=== PATIENT | female | born 1955 | race Caucasian/White ===

== ENCOUNTER 2021-06-20 07:46 | Outpatient (CLI) | payer OTHER, SELFPAY ==
--- NOTE | ~2021-06-20 | US_ITS ---
US arterial ankle brachial ind INDICATION: Peripheral vascular disease TECHNIQUE: Segmental pressures and plethysmographic and Doppler waveforms of the brachial and lower e xtremity arteries were obtained. COMPARISON: None. FINDINGS: Right and left brachial artery pressures of 154 mm Hg and 150 mm Hg, respectively, are concordant (no rmal difference <= 30 mmHg). The right ankle-brachial index (ESDRAS) is 0.97 (normal >= 0.9-1.0). The right great toe-brachial index (TBI) is 0.58 (normal >= 0.60). The left ESDRAS is 0.98. The left TBI is 0.55. IMPRESSION: 1. Normal ankle-brachial indices. Mildly decreased toe brachial indices consistent with mild peripher al arterial disease. Reviewed, dictated and finalized at location B. H DESIGNER IMPRESSION: 1. Normal ankle-brachial indices. Mildly decreased toe brachial indices consist ent with mild peripheral arterial disease.
== END 2021-06-20 07:47 | disposition home or self-care (01) ==
PROVIDERS: PCP Internal Medicine; Visit Provider Nurse Practitioner
DX: I73.9 Peripheral vascular disease, unspecified (principal)
CPT/HCPCS: 93922

== ENCOUNTER 2021-09-30 14:37 | Outpatient (CLI) | payer OTHER, SELFPAY ==
--- NOTE | ~2021-09-30 | CT_ITS ---
EXAMINATION: CT abdomen pelvis wo con DATE: 09/30/2021 14:55 INDICATION: Left lower quadrant pain TECHNIQUE: Computed tomography (CT) of the abdomen and pelvis was performed without intravenous contr ast. The dose-length product was 198.48 mGy-cm. Automated exposure control and iterative reconstructi on technique were employed. COMPARISON: CT dated 04/22/2008. FINDINGS: Lung bases are unremarkable. Heart size is normal. Small chronic pericardial effusion. No s ignificant pleural effusion. Status post cholecystectomy. The liver, spleen, adrenal glands are unrem arkable. There are pancreatic calcifications, consistent with chronic pancreatitis. The left kidney i s not identified, possibly surgically absent. There are anastomotic changes in the distal colon. Mild lumbar spondylosis. Dextroscoliosis. There is atherosclerosis of the aorta. No lymphadenopathy. No a cute osseous abnormality. IMPRESSION: 1. Small chronic pericardial effusion. 2: Chronic pancreatitis. 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 Reviewed, dictated and finalized at location B.
--- NOTE | ~2021-09-30 | US_ITS ---
EXAMINATION: US carotid duplex BI DATE: 09/30/2021 15:17 INDICATION: Peripheral vascular disease. TECHNIQUE: Grayscale, color Doppler, and pulsed Doppler images of the cervical carotid arteries were obtained. The degree of vessel stenosis is placed in one of the following categories: normal, <50%, 5 0-69%, >=70% but less than near-occlusion, near-occlusion, or total occlusion. Note that percent sten osis relative to normal distal artery lumen diameter is indirectly measured from velocity measurement s as described by Juliano, et al. Radiology 2003; 229:340-346. COMPARISON: None. FINDINGS: RIGHT: The right common carotid artery (CCA) peak systolic velocity (PSV) is 134 cm/s. The right internal ca rotid artery (ICA) PSV is 114 cm/s. The right ICA end-diastolic velocity (EDV) is 39 cm/s. The right ICA/CCA PSV ratio is 0.9. Grayscale and color Doppler images yield an estimate of <50% diameter reduc tion from plaque in the ICA. There is antegrade flow in the right vertebral artery. LEFT: The left CCA PSV is 114 cm/s. The left ICA PSV is 153 cm/s. The left ICA EDV is 32 cm/s. The left ICA /CCA PSV ratio is 1.4. Grayscale and color Doppler images yield an estimate of <50% diameter reductio n from plaque in the ICA. There is antegrade flow in the left vertebral artery. IMPRESSION: 1. <50% stenosis in the right internal carotid artery. 2. <50% stenosis in the left internal carotid artery. Reviewed, dictated and finalized at location A.
== END 2021-09-30 14:38 | disposition home or self-care (01) ==
PROVIDERS: Visit Provider Nurse Practitioner
DX: R10.32 Left lower quadrant pain (principal); I65.23 Occlusion and stenosis of bilateral carotid arteries; Z87.891 Personal history of nicotine dependence; K85.90 Acute pancreatitis without necrosis or infection, unspecified; I31.3 Pericardial effusion (noninflammatory); M41.9 Scoliosis, unspecified; M47.816 Spondylosis without myelopathy or radiculopathy, lumbar region; I70.0 Atherosclerosis of aorta
CPT/HCPCS: 74176; 93880

== ENCOUNTER 2022-09-29 10:15 | Outpatient (CLI) | payer OTHER, SELFPAY ==
--- NOTE | ~2022-09-29 | CT_ITS ---
EXAMINATION: CT lung screening DATE: 09/29/2022 10:51 INDICATION: screening TECHNIQUE: Computed tomography (CT) of the chest was performed without intravenous contrast. Addition al 3D reconstructions utilizing coronal maximum intensity projection (MIP) were performed. Automated exposure control and iterative reconstruction technique were employed. The dose-length product was 55 .45 mGy-cm. COMPARISON: CT abdomen and pelvis dated 09/30/2021 FINDINGS: Mild emphysema. Mild right apical pleural-parenchymal scarring. Calcified nodules in the right lower lobe along with calcified right hilar lymph nodes consistent with old granulomatous disease. A couple subpleural 2-3 mm noncalcified nodules in the posterior right and left lower lobes. No pneumonia, pu lmonary edema or pleural effusion. Heart size is normal. Atherosclerotic coronary artery calcificatio ns. Chronic small thoracic aorta is normal in caliber. No pathologically enlarged thoracic lymphadeno hai. Pericardial effusion. Cholecystectomy clips at the gallbladder fossa. Mild thoracic kyphosis with chronic. Minimal anterior wedging at T6-T8. Moderate thoracic spondylosis. Ossification bridging between the anterolateral right seventh and eighth ribs which could be developmental or sequela of o ld trauma. IMPRESSION: 1. Lung-RADS category 2: Benign appearance or behavior. Continue annual screening with noncontrast lo w-dose chest CT in 12 months. 2. Chronic small pericardial effusion. Reviewed, dictated and finalized at location B. IMPRESSION: 1. Lung-RADS category 2: Benign appearance or behavior. Continue annual screeni ng with noncontrast low-dose chest CT in 12 months. 2. Chronic small pericardial effusion.
== END 2022-09-29 10:16 | disposition home or self-care (01) ==
PROVIDERS: PCP Internal Medicine; Visit Provider Nurse Practitioner
DX: Z12.2 Encounter for screening for malignant neoplasm of respiratory organs (principal); F17.210 Nicotine dependence, cigarettes, uncomplicated; I31.39 Other pericardial effusion (noninflammatory)
CPT/HCPCS: 71271

== ENCOUNTER → 2023-04-09 08:07 | Outpatient (CLI) | payer OTHER, SELFPAY ==
--- NOTE | ~2023-04-09 | XR_ITS ---
EXAMINATION: XR shoulder LT min 2V INDICATION: Left shoulder pain TECHNIQUE: Four views of the left shoulder are submitted. COMPARISON: None FINDINGS: Normal alignment. No fracture. There is mild osteoarthritis of the acromioclavicular and gl enohumeral joints. Soft tissues are unremarkable. IMPRESSION: 1. Osteoarthritis without acute osseous abnormality. Reviewed, dictated and finalized at location L.
== END ==
PROVIDERS: PCP Nurse Practitioner; Visit Provider Nurse Practitioner
DX: M25.512 Pain in left shoulder (principal); M19.012 Primary osteoarthritis, left shoulder
CPT/HCPCS: 73030

== ENCOUNTER 2023-08-21 14:35 | Outpatient (CLI) | payer OTHER, SELFPAY ==
--- NOTE | ~2023-08-21 | US_ITS ---
EXAMINATION: US soft tissue chest DATE: 08/21/2023 15:18 INDICATION: Palpable lesion in the right infraclavicular region TECHNIQUE: Multiple grayscale and Doppler ultrasound images of the right infraclavicular region of co ncern were obtained. COMPARISON: CT dated 09/29/2022 FINDINGS: Normal appearance to the subcutaneous fat and underlying musculature at the region of concern with no abnormal masses or fluid collections identified at this location. There is a 4 x 4 x 2 mm hypoechoic subdermal lesion position 1.7 mm deep to the skin surface which per software licensing analyst report did not repre sent the palpable abnormality of concern. There are 2 similar sized subdermal lesions evident on CT d ated 09/29/2022 located anterior to the midline of the manubrium and anterior to the right sternoclavi cular joint. IMPRESSION: 1. No abnormal mass or fluid collection identified at the region of concern. 2. Incidentally identified 4 x 4 x 2 mm hypoechoic subdermal lesion not corresponding to the palpable abnormality of concern potentially representing an epidermoid cyst. Reviewed, dictated and finalized at location A. ICAL EDUCATOR IMPRESSION: 1. No abnormal mass or fluid collection identified at the region of concern. 2. Incidentally identified 4 x 4 x 2 mm hypoechoic subdermal lesion not corresp onding to the palpable abnormality of concern potentially representing an epide rmoid cyst.
== END 2023-08-21 14:36 | disposition home or self-care (01) ==
PROVIDERS: PCP Nurse Practitioner; Visit Provider Nurse Practitioner
DX: R22.2 Localized swelling, mass and lump, trunk (principal)
CPT/HCPCS: 76604

== ENCOUNTER 2023-10-09 11:21 | Outpatient (CLI) | payer OTHER, SELFPAY ==
--- NOTE | ~2023-10-09 | MMUS_ITS ---
EXAMINATION: MM diagnostic frantz BI w brennon, US breast RT limited HISTORY: Palpable right breast abnormality TECHNIQUE: Additional 3-D tomosynthesis images of the breasts were performed and synthetic 2-D images were generated. CAD analysis was submitted and interpreted. High resolution Limited right breast ult rasound was performed. COMPARISON: 08/11/2019 BREAST PARENCHYMAL COMPOSITION: Not dense: There are scattered areas of fibroglandular density. FINDINGS: MAMMOGRAPHIC FINDINGS: There are no suspicious masses, calcifications or architectural distortion in the right breast to sug gest malignancy. ULTRASOUND: Limited right breast ultrasound: Normal heterogeneous echotexture without focal solid or cystic mass. IMPRESSION: 1. No evidence for malignancy in either breast. 2. Routine yearly screening mammogram and regular clinical breast examination are recommended. BI-RADS Category 1: Negative Reviewed, dictated and finalized at location A. IMPRESSION: 1. No evidence for malignancy in either breast. 2. Routine yearly screening mammogram and regular clinical breast examination a re recommended. BI-RADS Category 1: Negative
== END 2023-10-09 11:22 | disposition home or self-care (01) ==
LOC: ANHIMG 11:23
PROVIDERS: PCP Nurse Practitioner; Visit Provider Surgery
DX: R92.8 Other abnormal and inconclusive findings on diagnostic imaging of breast (principal)
CPT/HCPCS: 76642; 77062; 77066; G0279

== ENCOUNTER 2024-02-24 12:39 | Outpatient (CLI) | payer OTHER, SELFPAY ==
--- NOTE | ~2024-02-24 | CT_ITS ---
CT chest abdomen pelvis w con Ordering provider: Carmen Barriga APRN History: . Chronic obstructive pulmonary disease, unspecified, LLQ pain . Comparison: None. Technique: CT chest, abdomen and pelvis with IV contrast only. Radiation reduction technique utilized . The dose-length product was 299.19 mGy-cm. 100 mL Omnipaque 350 was given IV. FINDINGS: CHEST: --VISUALIZED THORACIC INLET: Normal. --MEDIASTINUM: Aorta/coronary arteries: Mild atheromatous disease. Heart/other: The heart is not enlarged. Trace of pericardial effusion. Lymph nodes: No mediastinal or hilar adenopathy. Right hilar lymph node is seen measuring 1.4 cm. Right hilar calcified lymph nodes. --LUNGS: No pulmonary nodules or masses. No infiltrates or effusions. No pneumothorax. COPD changes a re seen. Secretions seen in the right lower lobe bronchi. --MUSCULOSKELETAL: Soft tissues: The superficial soft tissues are normal. Bones: No acute fracture. Age appropriate degenerative changes of the spine. Bony bridging between th e 8 cm in length versus seen in the right side. ABDOMEN/PELVIS: --MUSCULOSKELETAL: Bones: No acute fracture. Age appropriate degenerative changes of the spine. Superficial soft tissues: The superficial soft tissues are normal. --UPPER ABDOMINAL ORGANS: Liver: Tiny cyst in the right lobe segment 7 measuring 8 mm. Hypodensity in the left lobe measuring 1 1 mm most likely a cyst. Enlargement of the left lobe. Gallbladder: Status post cholecystectomy. Spleen: Normal. Stomach/duodenum: Narrowing in the mid stomach most likely spastic. Gastroscopy is advised. Prominent soft tissue density in the area of the ampulla lateral measuring 6 mm. Further evaluation advised. Pancreas: Prominent pancreatic duct. Follow-up advised. Adrenals: Normal. Kidneys: Left kidney is not demonstrated with hypertrophy of the right kidney. Fullness of the right renal pelvis is noted. --PELVIC ORGANS: The bladder is underfilled. --BOWEL AND MESENTERY: Colon: Postoperative changes seen in the sigmoid colon area. No evidence of diverticulitis sigmoid co leonard. No evidence of appendicitis. Small Bowel: Normal. No obstruction. Peritoneum/mesentery: No free air or free fluid. No mesenteric lymphadenopathy. --RETROPERITONEUM: Aneurysmal dilatation is seen with the aorta measures 2.9 x 3 cm. Intramural hemat devon or collection seen in the distal aorta. Atherosclerotic changes seen in the iliac arteries. Sever e atheromatous disease of the abdominal aorta. No retroperitoneal lymphadenopathy. IMPRESSION: CHEST: 1. COPD changes in the lungs. 2. Minimal pericardial effusion. ABDOMEN/PELVIS: 1. Narrowing in the mid stomach with prominent soft tissue density in the area of the ampulla of Vat er. Gastroscopy is advised. 2. Small cyst in the liver. 3. Absent left kidney with hypertrophy of the right kidney. Hydronephrotic changes in the right godwin l pelvis. Follow-up advised. 4. Prominent pancreatic duct. Follow-up advised. 5. Aneurysmal dilatation of the distal aorta measuring 3 x 3 cm with possible intramural hematoma di stally in the aorta. Reviewed, dictated and finalized at location A. IMPRESSION: CHEST: 1. COPD changes in the lungs. 2. Minimal pericardial effusion. ABDOMEN/PELVIS: 1. Narrowing in the mid stomach with prominent soft tissue density in the area of the ampulla of Vater. Gastroscopy is advised. 2. Small cyst in the liver. 3. Absent left kidney with hypertrophy of the right kidney. Hydronephrotic james nges in the right renal pelvis. Follow-up advised. 4. Prominent pancreatic duct. Follow-up advised. 5. Aneurysmal dilatation of the distal aorta measuring 3 x 3
--- NOTE | ~2024-02-24 | CT_ITS ---
CT thoracic spine wo con Ordering provider: Carmen Barriga APRN History: . Left lower quadrant pain . Comparison: None. Technique: CT thoracic spine without contrast. Automated exposure control and iterative reconstructi on technique were employed. The dose-length product was 216.79 mGy-cm. FINDINGS: VERTEBRAE: Normal height and alignment. No subluxation or visible acute fracture. . Kyphosis is noted . Degenerative changes of the spine. DISC SPACES: Well maintained. No significant stenosis as visualized. PARASPINOUS SOFT TISSUES: Normal. IMPRESSION: No acute osseous abnormality of the thoracic spine. Reviewed, dictated and finalized at location A.
--- NOTE | ~2024-02-24 | CT_ITS ---
CT lumbar spine wo con Ordering provider: Carmen Barriga APRN History: 68 years Female with . LLQ PAIN . Comparison: The Technique: CT lumbar spine without contrast. Automated exposure control and iterative reconstruction technique were employed. The dose-length product was 152.95 mGy-cm. FINDINGS: VERTEBRAE: Normal height and alignment. No subluxation or visible acute fracture. DISC SPACES: Degenerative disc disease at the level of L4-L5. Multilevel facet joint disease. T12-L1: No stenosis. L1-L2: No stenosis. L2-L3: No stenosis. Bilateral facet joint disease. L3-L4: Mild spinal canal stenosis secondary to broad based disc bulge, facet arthropathy, and ligamen kareen flavum hypertrophy. L4-L5: No stenosis. Diffuse disc bulge. Bilateral facet joint disease. L5-S1: No stenosis. PARASPINOUS SOFT TISSUES: Mild atheromatous disease of the abdominal aorta. Aorta measures 3 cm. The left kidney is not demonstrated. IMPRESSION: No acute osseous abnormality. Multilevel degenerative disc disease with variable degrees of spinal canal stenosis and intervertebra l foraminal narrowing. Nonvisualized left kidney. Abdominal aorta measures 3 cm Reviewed, dictated and finalized at location A. IMPRESSION: No acute osseous abnormality. Multilevel degenerative disc disease with variable degrees of spinal canal sten osis and intervertebral foraminal narrowing. Nonvisualized left kidney. Abdominal aorta measures 3 cm
[2024-02-24 13:05] LABS: Estimated Glomerular Filt Rate 55
== END 2024-02-24 12:40 ==
LOC: MICIMG 12:40
PROVIDERS: PCP Nurse Practitioner Family; Visit Provider Nurse Practitioner Family
DX: R22.2 Localized swelling, mass and lump, trunk (principal); R19.8 Other specified symptoms and signs involving the digestive system and abdomen; R10.32 Left lower quadrant pain; J44.9 Chronic obstructive pulmonary disease, unspecified; K76.89 Other specified diseases of liver; Z90.5 Acquired absence of kidney; N28.81 Hypertrophy of kidney; I71.9 Aortic aneurysm of unspecified site, without rupture; M51.36 Other intervertebral disc degeneration, lumbar region
CPT/HCPCS: 71260; 72128; 72131; 74177; Q9967

== ENCOUNTER 2024-03-01 07:10 | Outpatient (CLI) | payer OTHER, SELFPAY ==
[2024-03-01 08:08] LABS: Basophils Percent Auto 0.6 % (0.2-1.2); Eosinophils Absolute Auto 0.2 K/mm3 (0-0.3); Eosinophils Percent Auto 2.8 % (0-4.4); Hematocrit 49.3 % (37.0-47.0); Hemoglobin 16.3 g/dL (12.0-15.0); Immature Granulocyte Absolute 0.02 K/mm3 (0.00-0.031); Immature Granulocyte Percent A 0.3 % (0-0.5); Lymphocytes Absolute Auto 2.37 K/mm3 (0.9-3.2); Lymphocytes Percent Auto 36.2 % (18.3-44.2); Mean Corpuscular HGB Conc 33.1 g/dl (32-36); Mean Corpuscular Hemoglobin 30.2 pg (26-34); Mean Corpuscular Volume 91.3 fl (80-100); Mean Platelet Volume 10.5 fl (7.4-10.4); Monocytes Absolute Auto 0.3 K/mm3 (0.1-0.6); Neutrophils Absolute Auto 3.6 K/mm3 (1.3-6.7); Neutrophils Percent Auto 55.1 % (45.5-73.1); Platelet Count Result 298 k/mm3 (150-375); Red Cell Distribution Width 15.3 % (11.5-14.5); White Blood Count 6.5 K/mm3 (4.5-10.0)
[2024-03-01 08:09] LABS: Alanine Aminotransferase 18 U/L (6-35); Albumin Level 4.3 g/dL (3.5-5.1); Alkaline Phosphatase 78 U/L (38-126); Anion Gap 9 mmol/L (4-12); Aspartate Amino Transferase 22 U/L (14-36); Bilirubin,Total 0.5 mg/dL (0.2-1.3); Blood Urea Nitrogen 16 mg/dL (7-17); CRP < 0.5 mg/dL (<1.0); Carbon Dioxide 27 mmol/L (22-30); Chloride 101 mmol/L (98-107); Cholesterol 179 mg/dL (0-200); Estimated Glomerular Filt Rate > 60; Glucose 103 mg/dL (65-110); HDL Direct 69 mg/dL; Sodium 137 mmol/L (137-145); Triglycerides 151 mg/dL (<150)
[2024-03-01 08:13] LABS: Add Urine Microscopic? YES; Appearance Urine Cloudy (Clear); Bacteria Urine 4+ /hpf; Bilirubin Urine Negative (Negative); Blood Urine Negative (Negative); Color Urine Yellow (Yellow); Glucose Urine UA Negative (Negative); Ketones Urine Trace mg/dL (Negative); Leukocyte Esterase Ur 1+ LEU/UL (Negative); Nitrate Urine Positive (Negative); Non Pathogenic Casts 0-2; Protein Urine 1+ mg/dL (Negative); RBC Urine 0-2 /hpf (0-2); Squamous Epithelial Cell Urine Moderate /hpf (Few); WBC Urine 21-50 /hpf (0-3); pH Urine 5.5 (5.0-9.0)
[2024-03-01 08:18] LABS: LDL Cholesterol Direct 72 mg/dL
[2024-03-01 09:53] LABS: Free T4 Free Thyroxine 1.42 ng/mL (0.78-2.19); Vitamin D 25 Hydroxy 22.2 ng/mL
[2024-03-01 10:19] LABS: Erythrocyte Sedimentation Rate 12 mm/hr (0-20)
== END 2024-03-01 07:11 | disposition home or self-care (01) ==
LOC: ANHLAB 07:13
PROVIDERS: PCP Nurse Practitioner Family; Visit Provider Nurse Practitioner Family
DX: R73.02 Impaired glucose tolerance (oral) (principal); R10.32 Left lower quadrant pain; R06.02 Shortness of breath; M25.50 Pain in unspecified joint; R35.0 Frequency of micturition; F41.9 Anxiety disorder, unspecified; E78.5 Hyperlipidemia, unspecified; E55.9 Vitamin D deficiency, unspecified; J44.9 Chronic obstructive pulmonary disease, unspecified; R91.8 Other nonspecific abnormal finding of lung field; K59.00 Constipation, unspecified; R63.4 Abnormal weight loss; R25.1 Tremor, unspecified; R19.7 Diarrhea, unspecified; Z72.0 Tobacco use; Z98.890 Other specified postprocedural states
CPT/HCPCS: 36415; 80053; 80061; 81001; 82306; 83036; 84439; 84443; 85025; 85652; 86140; 87077; 87086; 87088; 87186

== ENCOUNTER 2024-10-13 07:06 | Outpatient (CLI) | payer OTHER, SELFPAY ==
--- OUTSIDE RECORDS SUMMARY | 2024-10-13 07:10 | XMS_ITS | Continuity of Care Document ---
Author Organization [facility] Address [address] [place] [address] Phone Care Team Providers Care Gunner'S Mate Name Role Phone [facility] Unavailable Unavail able Flor Stephenson Unavailable Unavailable Procedures Procedure Date Progressive Lens, Plastic Tax - Medical Eye Exam, New Patient Refraction Advance Directives Directive Yes / No Effective Date File Name No Information Encounters Encounter Description Practice Location Reason(s) For Visit Diagnoses Date Provider Providers Copied on Encounter [facility], [address] [place] [address] [address], [place], [place], [id number], [place] tel:[phone] [facility] No Information 0-200 7 [facility] . [address] [facility], [facility] [address], [place], [id number], [place]. tel:[phone] Referring Provider: Aung Palumbo OD Venita, [address] [facility] [address], [place], [address]. tel:[phone] g Provider: Flor Stephenson, [address] [facility], [place], [address]. tel:[phone] [address] [facility], [address], [place], [place], [id number], [place] tel:[phone] [facility] No Information November- 0-200 7 Palumbo EDI Horan. [address] [facility] , [address], [place], [address], [place]. tel:[phone] Family History Family Member Type Diagnosis Age At Onset No Information Payers Payer name Insurance type Covered democrat ID Authoriza tion(s) No Information Social History Type Description Quantity Date Captured Comments Sex Female Smoking Status No Information Chief Complaint And Reason For Visit No Information Reason For Referral Reason For Referral No Information History Of Present Illness Encounter Date Complaint History Of Prese nt Illness No Information Functional Status Date Functional Assessmen t No Information Instructions Date Instruction Additional Infor mation No Information Assessments Type Assessment Date No Information Patient Care Teams Name Effective Dates (start - stop) Status Members No Information
--- OUTSIDE RECORDS SUMMARY | 2024-10-13 07:10 | XMS_ITS | Referral Summary ---
Author Organization [facility] Address [address] [place] [address] Care Team Providers Care [employer] Safety Program Coordinator Name Role Phone Carmen Barriga NP Primary Care Provider [phone] Allergies No known active allergies Medications ALPRAZolam (XANAX) 0.5 mg tablet Take by mouth 2 (two) times a day as needed 0 03/03/2019 Active omeprazole (PriLOSEC) 20 mg capsule Take by mouth daily as needed 0 03/03/2019 Active aspirin 81 mg enteric coated tablet Take 1 tablet (81 mg total) by mouth daily Active pravastatin (PRAVACHOL) 40 mg tablet Take 1 tablet (40 mg total) by mouth daily 01/31/2023 Active escitalopram (LEXAPRO) 10 mg tablet 03/14/2024 Active varenicline tartrate (CHANTIX) 0.5 mg tabletIndication s:Smoking Cessation Take 1 tablet (0.5 mg total) by mouth 2 (two) times a day Take with full glass of water. 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 Follow up 1 year with aortic duplex. Bilateral carotid artery stenosis 03/29/2024 Assessment & Plan (03/29/2024 3:13 PM CDT): Carotid bruit. Will check carotid duplex. Abnormal stress test 12/22/2022 HASSAN (dyspnea on exertion) 12/01/2022 Palpitations 12/01/2022 Tobacco abuse 12/01/2022 Assessment & Plan (03/29/2024 3:13 PM CDT): Greater than 3 minutes was spent on smoking cessation and education. The ill effects tobacco abuse were explained to the patient in addition to the effects of aneurysm growth and potential rupture. Different modalities were discussed. She will help to quit. Other chest pain 12/01/2022 Primary osteoarthritis of fi rst carpometacarpal joint of right hand 10/04/2019 Trigger middle finger of right hand 10/04/2019 Mass of soft tissue of hand 10/04/2019 Social History Tobacco Use Types Packs/Day Years Used Date Smoking Tobacco: Every Day Cigarettes Smokeless Tobacco: Current Tobacco Cessation:Ready to Q uit: Not Asked; Counseling Given: Not Answered Alcohol Use Standard Drinks/Week Comments Yes 0 (1 standard drink = 0.6 oz pur e alcohol) AUDIT-C Answer Date Recorded Q1: How often do you have a drink containing alc ohol? Monthly or less 01/06/2023 Q2: How many drinks containi ng alcohol do you have on a typical day when you are drinking? 1 or 2 01/06/2023 Q3: How often do you have si x or more drinks on one occasion? 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 Gender Identity Not on file Sexual Orientation Not on file Last Filed Vital Signs Vital Sign Reading Time Taken Comments Blood Pressure 130/74 04/11/2024 8:09 AM CDT Pulse 76 04/11/2024 8:09 AM CDT Temperature 36.7 C (98.1 F) 01/06/2023 6:44 AM CDT Respiratory Rate 14 01/06/2023 6:44 AM CDT Oxygen Saturation 96% 04/11/2024 8:09 AM CDT Inhaled Oxygen Concentration - - Weight 46 kg (101 lb 6.4 oz) 04/11/2024 8:09 AM CDT Height 156.2 cm (5' 1.5 ) 04/11/2024 8:09 AM CDT Body Mass Index 18.85 04/11/2024 8:09 AM CDT Plan of Treatment Not on file Medical Devices Implanted Type Area Leasing Manager Device Identifier Shelf Expiration Date Model / Serial / Lot [employer] Device Closure Vascade Od5 Fr Femoral Artery [id number] - [id number] Implanted:Qty: 1 on 01/06/2023 by Kamryn Collins MD at [facility] [employer] 08/11/2024 700-500DX-[id number] / / [id number] Insurance HEALTHCARE HEALTHCARE HEALTHCARE Advance Directives For more information, please contact: [phone] * Full Code (Latest Code Status on File) Date Activated Date Inactivated Comments 01/06/2023 11:33 AM 01/06/2023 5:28 PM Care Teams Auto [employer] Safety Program Coordinator Relationship Specialty Start Date End Date Carmen Barriga NP [address] [facility] [address] [address] PCP - General Nurse Practitioner 03/01/24
--- OUTSIDE RECORDS SUMMARY | 2024-10-13 07:10 | XMS_ITS | Clinical Summary ---
Author Organization [facility] Address [address] [place] [address] Care Team Providers Care Placement Assistant Name Role Phone Carmen Barriga NP Primary Care Provider [phone] Allergies No known active allergies Medications ALPRAZolam [...] Mass of soft tissue of hand 10/04/2019 Surgical History Surgery Date Site/Laterality Comments HAND SURGERY Right EXC RT TRAP W/LRTI, RT LONG TF REL, EXC STM RT LONG FLEXION CREASE COLON SURGERY 07/20/1998 - 07/19/1999 HYSTERECTOMY CHOLECYSTECTOMY Medical History Medical History Date Comments Hypertension Family History Medical History Relation Name Comments Heart attack Father Heart attack Mother Relation Name Status Comments Father Mother Social History Tobacco Use Types Packs/Day Years [...] on file Legal Sex Female 12:42 AM PHYSICAL MEDICINE PHYSICIAN Gender Identity Not on file Sexual Orientation Not on file Obstetrics History Last Filed Vital Signs Vital Sign Reading [...] 04/11/2024 8:09 AM CDT Plan of Treatment Health Maintenance Due Date Last Done Comments Breast Cancer Screening-Mammogram 1953 Colon Cancer Screening-Colonoscopy 1955 Depression Screening 1953 Hepatitis C Screening 1953 Osteoporosis Screening-Bone Density Scan 1953 DTaP/Tdap/Td Vaccine (1 - Tdap) 1964 Hepatitis B Screening 1971 Pneumococcal vaccine 65+ (1 of 2 - PCV) 1972 Zoster Vaccine (1 of 2) 2003 Well Visit 65+ 2018 Fall Risk Assessment 01/07/2024 01/06/2023 Covid-19 Vaccine ( season) 2024, 09/15/2020 Influenza Vaccine (#1) 2024 06/12/2020 Medical Devices Implanted Type Area Welding Machine Operator Electron Beam Device Identifier Shelf Expiration Date Model / Serial / Lot [employer] Device Closure Vascade Od5 Fr Femoral Artery [id number] - [id number] Implanted:Qty: 1 on 01/06/2023 by Kamryn Collins MD at [facility] [employer] 08/11/2024 700-500DX-[id number] / / [id number] Insurance [facility] Member Subscriber Plan / Payer (Ef fective 2018-Present) Name:Coty Walton Relation to Subscriber:Self Name:Coty Walton Payer ID:[id number] (NAIC) Type:MEDICARE RISK OTHER Address: [address] [facility] [address] [place] [address] HEALTHCARE Member Subscriber Plan / Payer (Ef fective 2018-Present) Name:Coty Walton Relation to Subscriber:Self Name:Coty Walton Payer ID:[id number] (NAIC) Type:MEDICARE RISK OTHER [facility] [address] [facility] HEALTHCARE Advance Directives For more information, please contact: [phone] * Full Code (Latest Code Status on File) Date Activated Date Inactivated Comments 01/06/2023 11:33 AM 01/06/2023 5:28 PM Care Teams Placement Assistant Relationship Specialty Start Date End Date Carmen Barriga NP [address] [place] [address] PCP - General Nurse Practitioner 03/01/24
[2024-10-13 07:46] LABS: Basophils Percent Auto 0.5 % (0.2-1.2); Eosinophils Absolute Auto 0.2 K/mm3 (0-0.3); Eosinophils Percent Auto 2.8 % (0-4.4); Hematocrit 48.9 % (37.0-47.0); Hemoglobin 16.3 g/dL (12.0-15.0); Immature Granulocyte Absolute 0.03 K/mm3 (0.00-0.031); Immature Granulocyte Percent A 0.4 % (0-0.5); Lymphocytes Absolute Auto 2.46 K/mm3 (0.9-3.2); Mean Corpuscular HGB Conc 33.3 g/dl (32-36); Mean Corpuscular Hemoglobin 30.8 pg (26-34); Mean Corpuscular Volume 92.3 fl (80-100); Mean Platelet Volume 10.6 fl (7.4-10.4); Monocytes Absolute Auto 0.3 K/mm3 (0.1-0.6); Monocytes Percent Auto 4.3 % (2.6-8.5); Neutrophils Absolute Auto 4.8 K/mm3 (1.3-6.7); Platelet Count Result 248 k/mm3 (150-375); Red Cell Distribution Width 15.4 % (11.5-14.5); White Blood Count 7.9 K/mm3 (4.5-10.0)
[2024-10-13 08:04] LABS: Alanine Aminotransferase 19 U/L (6-35); Albumin Level 4.8 g/dL (3.5-5.1); Alkaline Phosphatase 90 U/L (38-126); Anion Gap 12 mmol/L (4-12); Aspartate Amino Transferase 24 U/L (14-36); Bilirubin,Total 0.6 mg/dL (0.2-1.3); Blood Urea Nitrogen 18 mg/dL (7-17); Calcium 9.7 mg/dL (8.4-10.2); Carbon Dioxide 27 mmol/L (22-30); Chloride 99 mmol/L (98-107); Estimated Glomerular Filt Rate > 60; Glucose 130 mg/dL (65-110); Sodium 138 mmol/L (137-145)
[2024-10-13 08:10] LABS: Hemoglobin A1C 5.7 % (<5.7)
[2024-10-13 08:11] LABS: Iron 77 ug/dL (37-170)
[2024-10-13 08:20] LABS: Percent Iron Saturation 22 % (20-50)
[2024-10-13 09:14] LABS: Folic Acid > 20.0 ng/mL (2.76->20)
[2024-10-17 16:12] LABS: Vitamin B6 5.3 ng/mL (2.1-21.7)
[2024-10-18 12:58] LABS: Vitamin B1 9 nmol/L (8-30)
== END 2024-10-13 07:07 | disposition home or self-care (01) ==
PROVIDERS: PCP Nurse Practitioner Family; Visit Provider Nurse Practitioner Family
DX: R10.32 Left lower quadrant pain (principal); F41.9 Anxiety disorder, unspecified; E78.5 Hyperlipidemia, unspecified; R73.03 Prediabetes; J44.9 Chronic obstructive pulmonary disease, unspecified; R73.02 Impaired glucose tolerance (oral); R25.1 Tremor, unspecified; R20.9 Unspecified disturbances of skin sensation; R20.2 Paresthesia of skin; D64.9 Anemia, unspecified
CPT/HCPCS: 36415; 80053; 82607; 82746; 83036; 83540; 83550; 84207; 84252; 84425; 85025

== ENCOUNTER 2025-01-03 07:00 | Outpatient (CLI) | payer OTHER, SELFPAY ==
--- OUTSIDE RECORDS SUMMARY | 2025-01-03 07:06 | XMS_ITS | Encounter Summary ---
Author Organization [facility] Healthcare Address [address] [place] [address] Care Team Providers Care Table Games Dual Rate Supervisor Name Role Phone Carmen Barriga NP Primary Care Provider Encounter Details Date Type Department Care Team (Late st Contact Info) Description 11/10/2024 [facility] Post Discharge Follow up phone call [place] [id number] [place] [address] Matilde Emerson Social History Tobacco Use Types Packs/Day Years Used Date Smoking Tobacco: Every Day Cigarettes Smokeless Tobacco: Never Alcohol Use Standard Drinks/Week Comments Yes 0 [...] Never 01/06/2023 Personal Safety Answer Date Recorded Have you ever been in or are you currently in a harmful physical or emotional relationship or is someone making you feel afraid or unsafe? 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
--- OUTSIDE RECORDS SUMMARY | 2025-01-03 07:06 | XMS_ITS | Continuity of Care Document ---
Author Organization [facility] Address [address] [place] [address] Phone Care Team Providers Care Sap Basis Consultant Name Role Phone [facility] Unavailable Unavail able Flor Stephenson Unavailable Unavailable Procedures Procedure Date Progressive Lens, Plastic Tax - Medical Eye Exam, New Patient Refraction Advance Directives Directive Yes / No Effective Date File Name No Information Encounters Encounter Description Practice Location Reason(s) For Visit Diagnoses Date Provider Providers Copied on Encounter [facility], [address] [place] [address] [address], [place], [place], [id number], [place] tel:[phone] [facility] No Information 0-200 7 [facility] . [address] [facility], [facility] [place] [address], [place], [id number], [place]. tel:[phone] Referring Provider: Aung Palumbo OD [place], [address] [facility] [address], [place], [address]. tel:[phone] g Provider: Flor Stephenson, [address] [facility], [place], [address]. tel:[phone] [address] [facility], [address], [place], [place], [id number], [place] tel:[phone] [facility] No Information November- 0-200 7 Palumbo EDI Horan. [address] [facility] , [address], [place], [address], [place]. tel:[phone] Family History Family Member Type Diagnosis Age At Onset No Information Payers Payer name Insurance type Covered green party ID Authoriza tion(s) No Information Social History [...]
--- OUTSIDE RECORDS SUMMARY | 2025-01-03 07:06 | XMS_ITS | Encounter Summary ---
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
--- OUTSIDE RECORDS SUMMARY | 2025-01-03 07:06 | XMS_ITS | Clinical Summary ---
Author Organization [facility] Address [address] [place] [address] Care Team Providers Care Training And Quality Manager Name Role Phone Carmen Barriga NP Primary Care Provider [phone] Allergies No known active allergies Medications aspirin 81 mg enteric coated tablet Take 1 tablet (81 mg total) by mouth daily Active pravastatin (PRAVACHOL) 40 mg tablet Take 1 tablet (40 mg total) by mouth daily 01/31/2023 Active clopidogreL (PLAVIX) 75 mg tabletIndication s:myocardial infarction prevention,cardi ovascular disease Take 1 tablet (75 mg total) by mouth daily 30 tablet 11 11/03/2024 Active albuterol HFA (PROVENTIL HFA,VENTOLIN HFA,PROAIR HFA) 90 mcg/actuation inhaler as needed 11/29/2024 Active ALPRAZolam (XANAX) 0.25 mg tablet as needed 10/20/2024 Active Active Problems Problem Noted Date Diagnosed Date FH: CAD (coronary artery disease) 11/02/2024 CAD (coronary artery disease) 11/01/2024 Other congenital malformatio ns of pancreas and [...] Mass of soft tissue of hand 10/04/2019 Encounters Date Type Department Care Team Description 12/01/2024 9:00 AM CDT Office Visit [facility] Medical [facility] Cardiology [address] [place] [address] [address] [place] [phone] Lula Dewitt NP Coronary artery disease involving ho-chunk coronary artery of ho-chunk heart without angina pectoris (Primary Dx); Presence of stent in coronary artery; Tobacco abuse 11/10/2024 [facility] Post Discharge Follow up phone call [address] [address] Matilde Emerson 11/08/2024 [facility] Post Discharge Follow up phone call [address] [address] Matilde Emerson 11/07/2024 [facility] Post Discharge Follow up phone call [address] [address] Matilde Emerson 11/03/2024 Telephone [facility] Cardiology [address] [place] [address] [address] [place] [phone] Kamryn Collins MD 11/01/2024 8:30 AM CDT - 11/01/2024 10:00 AM CDT Surgery [facility] Cardiac Catheterization Lab [address] [place] [id number] Kamryn Collins MD LEFT HEART CATHETERIZATION WITH CORONARY ANGIOGRAPHY AND WITH OR WITHOUT LEFT VENTRICULOGRAM [id number] 11/01/2024 6:13 AM CDT - 11/02/2024 11:20 AM CDT Hospital Encounter [place] [phone] Kamryn Collins MD Other chest pain; HASSAN (dyspnea on exertion) Discharge Disposition: Discharge to home or self care 10/17/2024 8:00 AM CDT Office Visit [facility] Cardiology [address] [place] [address] Kamryn Collins MD HASSAN (dyspnea on exertion) (Primary Dx); Edema, unspecified type; Infrarenal abdominal aortic aneurysm (AAA) without rupture; Other chest pain; Abnormal stress test; Tobacco abuse; Palpitations; Need for lipid screening 10/17/2024 Telephone [facility] Cardiology [address] [place] [phone] Kamryn Collins MD from Last 3 Months Surgical History Surgery Date Site/Laterality Comments HAND SURGERY Right EXC RT TRAP W/LRTI, RT LONG TF REL, EXC STM RT LONG FLEXION CREASE COLON SURGERY 07/20/1998 - 07/19/1999 HYSTERECTOMY CHOLECYSTECTOMY NEPHRECTOMY Left CARDIAC CATHETERIZATION 11/01/2024 N/A Procedure: LEFT HEART CATHETERIZATION WITH CORONARY ANGIOGRAPHY AND WITH OR WITHOUT LEFT VENTRICULOGRAM [id number]; Surgeon: Kamryn Collins MD; 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 Medical History Medical History Date Comments Hypertension HASSAN (dyspnea on exertion) Chest discomfort COPD (chronic obstructive pulmonary disease) (HC C) AAA (abdominal aortic aneurysm) Bilateral carotid artery stenosis Full dentures upper and lower CAD (coronary artery disease) 11/01/2024 Family History Medical History Relation Name Comments Heart attack Father Heart attack Mother Relation Name Status Comments Father Mother Social History Tobacco Use Types Packs/Day Years Used Date Smoking Tobacco: Every Day Cigarettes Smokeless Tobacco: Never Tobacco Cessation:Ready to Q uit: Not Asked; [...] on file Legal Sex Female 12:42 AM [employer]ING [employer] Gender Identity Not on file Sexual Orientation Not on file Obstetrics History Last Filed Vital Signs Vital Sign Reading Time Taken Comments Blood Pressure 124/70 12/01/2024 8:54 AM CDT Pulse 71 12/01/2024 8:54 AM CDT Temperature 36.5 C (97.7 F) 11/02/2024 7:50 AM CDT Respiratory Rate 16 11/02/2024 7:50 AM CDT Oxygen Saturation 96% 12/01/2024 8:54 AM CDT Inhaled Oxygen Concentration - - Weight 44.9 kg (99 lb) 12/01/2024 8:54 AM CDT Height 154.9 cm (5' 1) 12/01/2024 8:54 AM CDT Body Mass Index 18.71 12/01/2024 8:54 AM CDT Plan of Treatment Health Maintenance Due Date Last Done Comments Breast Cancer Screening-Mammogram 1955 Colon Cancer Screening-Colonoscopy 1955 Depression Screening 1955 Hepatitis C Screening 1955 Osteoporosis Screening-Bone Density Scan 1955 DTaP/Tdap/Td Vaccine (1 - Tdap) 1964 Hepatitis B Screening 1971 Pneumococcal vaccine 65+ (1 of 2 - PCV) 1972 Zoster Vaccine (1 of 2) 2003 Well Visit 65+ 2018 Covid-19 Vaccine ( season) 2024, 09/15/2020 Influenza Vaccine (Season Ended) 2025 06/12/20 Fall Risk Assessment 11/02/2025 11/02/2024 Medical Devices Implanted Type Area Reconditioner Device Identifier Shelf Expiration Date Model / Serial / Lot [facility] Device Closure Vascade Od5 Fr Femoral Artery [id number] - [id number] Implanted:Qty: 1 on 01/06/2023 by Kamryn Collins MD at [facility] 08/11/2024 [id number] / / [id number] [facility] Vasc Surgery 2.25 X 18mm [employer]enny [place] Rx Coronary Stent [id number] - [id number] Implanted:Qty: 1 on 11/01/2024 by Kamryn Collins MD at [facility] Medtronic Card Vasc Surgery 11/24/2026 [id number] / / [id number] Procedures Procedure Name Priority Date/Time Associated Diagnosis Comments EGFR Routine 11/02/2024 5:15 AM CDT DIFFERENTIAL AUTO Routine 11/02/2024 5:1 5 AM CDT CBC WITH AUTO DIFFERENTIAL Routine 11/02/2024 5:15 AM CDT BASIC METABOLIC PANEL Routine 11/02/2024 5:15 AM CDT ECG 12-LEAD Routine 11/01/2024 10:55 AM CDT KAYCE MAJOR CORONARY Routine 11/01/2024 9: 38 AM CDT Other chest pain HASSAN (dyspnea on exertion) LEFT HEART CATHETERIZATION WITH CORONARY ANGIOGRAPHY AND WITH AND WITHOUT LEFT VENTRICULOGRAM Routine 11/01/2024 9:38 AM CDT Other chest pain HASSAN (dyspnea on exertion) MODERATE SEDATION FIRST 15MIN 5+ YEAR [id number] 11/01/2024 8:18 AM CDT Other chest pain HASSAN (dyspnea on exertion) MODERATE SEDATION SAME MD SUKHDEV GODOY 15 MIN [address] 11/01/2024 8:18 AM CDT Other chest pain HASSAN (dyspnea on exertion) EGFR Routine 11/01/2024 7:21 AM CDT DIFFERENTIAL AUTO Routine 11/01/2024 7:2 1 AM CDT CBC WITH AUTO DIFFERENTIAL Routine 11/01/2024 7:21 AM CDT BASIC METABOLIC PANEL Routine 11/01/2024 7:21 AM CDT POCT LIPID PANEL Routine 10/17/2024 12:0 7 PM CDT Need for lipid screening from Last 3 Months Results * eGFR (11/02/2024 5:15 AM CDT) eGFR >90 >=60 mL/min/1. 73 m2 Comment: Interpretive Data Reference Interval Normal >/= 90 mL/min/1.73m2 Mildly decreased* 60 - 89 mL/min/1.73m2 Mildly to moderately decreased 45 - 59 mL/min/1.73m2 Moderately to severely decreased 30 - 44 mL/min/1.73m2 Severely decreased 15 - 29 mL/min/1.73m2 Kidney Failure < 15 mL/min/1.73m2 *Relative to young adult level Estimated glomerular filtration rate is determined by the 2020 CKD-EPI equation recommended by the National Kidney Foundation (A Unifying Approach to GFR Estimation: Recommendations of the NKF-ASK Task Force on Reassessing the Inclusion of Race in Diagnosing Kidney Disease, JASN 202). The CKD-EPI equation should not be used for patients with unstable renal function and has not been validated in children and those over 70. Current interpretive data was last reviewed 2021. Blood 11/02/2024 5:15 AM CDT 11/02/2024 7:15 AM CDT us Kamryn Collins MD LAB BLOOD ORDERABLES Final Result [facility] [address] [facility] [place] Department [place] [address] * Differential, auto (11/02/2024 5:15 AM CDT) Neutrophil abs 6.48 1.50 - 6.50 K/cumm Imm gran abs 0.03 0.00 - 0.10 K/cumm [facility] Lymphocyte abs 1.89 0.80 - 3.30 K/cumm [facility] Monocyte abs 0.78 0.20 - 0.80 K/cumm [facility] Eosinophil abs 0.20 0.00 - 0.50 K/cumm [facility] Basophil abs 0.03 0.00 - 0.10 K/cumm [facility] Neutrophil pct 68.9 % [facility] Comment: Interpretive Data Percent cell count reference ranges are not reported, since discordance with absolute values may lead to misinterpretation of CBC data. Current Interpretive Data was last revised on 2017. Imm gran pct 0.3 % [facility] Comment: Interpretive Data Percent cell count reference ranges are not reported, since discordance with absolute values may lead to misinterpretation of CBC data. Current Interpretive Data was last revised on 2017. Lymphocyte pct 20.1 % [facility] Comment: Interpretive Data Percent cell count reference ranges are not reported, since discordance with absolute values may lead to misinterpretation of CBC data. Current Interpretive Data was last revised on 2017. Monocyte pct 8.3 % [facility] Comment: Interpretive Data Percent cell count reference ranges are not reported, since discordance with absolute values may lead to misinterpretation of CBC data. Current Interpretive Data was last revised on 2017. Eosinophil pct 2.1 % [facility] Comment: Interpretive Data Percent cell count reference ranges are not reported, since discordance with absolute values may lead to misinterpretation of CBC data. Current Interpretive Data was last revised on 2017. Basophil pct 0.3 % [facility] Comment: Interpretive Data Percent cell count reference ranges are not reported, since discordance with absolute values may lead to misinterpretation of CBC data. Current Interpretive Data was last revised on 2017. Blood 11/02/2024 5:15 AM CDT 11/02/2024 6:07 AM CDT Kamryn Collins MD LAB BLOOD ORDERABLES Final Result Performing Organization Address City/[facility]/ZIP Co de Phone Number GEO [address] Department [place] [address] * (ABNORMAL) CBC with auto differential (11/02/2024 5:15 AM CDT) WBC 9.41 3.80 - 9.90 K/cumm Hgb 14.3 11.9 - 15.5 g/dL [facility] Hct 44.4 35.6 - 45.5 % [facility] Plt 258 150 - 400 K/cumm [facility] MPV 10.8 9.1 - 12.3 fL [facility] RBC 4.79 3.90 - 5.20 M/cumm [facility] MCV 92.7 81.3 - 96.4 fL [facility] MCH 29.9 27.1 - 33.3 pg [facility] MCHC 32.2(L) 32.3 - 35.7 g/dL [facility] RDW CV 14.9 11.1 - 14.9 % [facility] RDW SD 51.4(H) 35.7 - 48.1 fL [facility] NRBC abs 0.00 0.00 - 0.01 K/cumm [facility] Blood 11/02/2024 5:15 AM CDT 11/02/2024 6:07 AM CDT Kamryn Collins MD LAB BLOOD ORDERABLES Final Result Performing Organization Address City/[facility]/ZIP Co de Phone Number GEO Loera [address]rea Department [place] [address] * (ABNORMAL) Basic metabolic panel (11/02/2024 5:15 AM CDT) Sodium 135 135 - 145 mmol/L Potassium, pl 4.3 3.3 - 4.9 mmol/L [facility] Chloride 98 97 - 110 mmol/L [facility] CO2 21(L) 22 - 32 mmol/L [facility] Anion gap 16(H) 2 - 15 mmol/L [facility] BUN 9 6 - 25 mg/dL [facility] Creatinine 0.68 0.60 - 1.10 mg/dL [facility] Glucose 96 70 - 199 mg/dL [facility] Comment: Interpretive Data Fasting glucose >/= 126 mg/dl is diagnostic for diabetes. Fasting is defined as no caloric intake for at least 8 hours. Fasting glucose between 100 mg/dl to 125 mg/dl is diagnostic of prediabetes. In a patient with classic symptoms of hyperglycemia or hyperglycemic crisis, a random glucose >/= 200 mg/dl is diagnostic for diabetes. In the absence of unequivocal hyperglycemia, results should be confirmed by repeat testing. The classification and Diagnosis of Diabetes Diabetes Care 2021; 46: S19-S40. Current interpretive data was last revised 2022. Calcium 8.9 8.5 - 10.3 mg/dL [facility] Blood 11/02/2024 5:1 5 AM CDT 11/02/2024 6:07 AM CDT Kamryn Collins MD LAB BLOOD ORDERABLES Final Result Performing Organization Address [facility] de Phone Number [facility] [address] [facility] [place] Department [place] [address] * ECG 12 lead (11/01/2024 10:55 AM CDT) 11/01/2024 10:5 5 AM CDT Narrative [facility] - 11/01/2024 12:30 PM CDT Vent Rate: 90 bpm RR Interval: 660 msec LA Interval: 125 msec QRS Duration: 89 msec QT Interval: 360 msec QTC Interval: 408 msec P-R-T [place]: 70 - 62 - 50 degrees IMPRESSION: SINUS RHYTHM NORMAL ECG Electronically Signed By: Denis Gregorio MD Kamryn Collins MD ECG ORDERABLES Skylar l Result Performing Organization Address City/[facility] Co de Phone Number [facility] * LEFT HEART CATHETERIZATION WITH CORONARY ANGIOGRAPHY AND WITH AND WITHOUT LEFT VENTRICULOGRAM, KAYCE MAJOR CORONARY (11/01/2024 9:38 AM CDT) Anatomical Region Laterality Modality X-Ray Angiograph y Narrative 11/01/2024 1:30 PM CDT CARDIAC CATHETERIZATION REPORT [place] IP ENCOUNTER: @CSN@ Date of Procedure: 11/01/2024 BIRTHDATE: 1955 SUPERVISOR OPERATIONS: Kamryn Collins MD PREPROCEDURE DIAGNOSES: This 69-year-old female with history of off hyperlipidemia, chronic tobacco use, a single kidney(born with 1 kidney) and history of total colectomy . She had a heart catheterization couple years ago that shows 50% distal left circumflex artery. Now she comes for increasing dyspnea on exertion and exertional chest pain and therefore cardiac catheterization is done. PROCEDURES PERFORMED: Moderate sedation that started at 8:37 a.m. and ended 940 a.m. with total duration 63 minutes using 4mg of Versed and 100mcg of fentanyl. The registered nurse was alvaro galan. Selective left and right coronary angiogram. Left heart catheterization with measurement of LVEDP and measure gradient across aortic valve. Deployment drug-eluting stent 2.25 by 18 covering mid left circumflex artery. Right common femoral arterial angiogram. FINDINGS: Left main with no significant obstruction. Left anterior descending artery minimal irregularities. Left circumflex artery gives rise to large OM1 after takes off from the left main which looked okay. Mid left circumflex artery 70%. Right coronary artery is medium in caliber with minimal irregularities however proximally near the ostium gives rise to a large marginal branch that has minimal irregularities. LVEDP was 7 mm Hg and no gradient across aortic valve. Right common femoral arterial angiogram shows some disease in the right external iliac artery. COMPLICATIONS: None ESTIMATED BLOOD LOSS: 10 mL PROCEDURAL DESCRIPTION: After informed consent patient was brought into the clinical lab technologist where she was draped and prepped in the usual manner. Moderate sedation was given and the right groin infiltrated using 1% lidocaine. Five Chilean sheath was obtained using micropuncture needle and modified Seldinger technique. Selective left coronary angiogram was done using JL4 catheter with the tip of the catheter placed in the left main coronary artery. Selective right coronary angiogram was done using JR4 catheter with the tip of the catheter placed in the right coronary artery. After that 5 Chilean pigtail catheter was advanced across aortic valve into the left ventricular with measurement of LVEDP and measure gradient across aortic valve. Right common femoral arterial angiogram was done . INTERVENTION -Left main coronary artery was engaged using 6 Chilean EBU 3.5 guide catheter. After that we attempted to wire the left circumflex arteries using minamo without success. Then we used whisper wire and managed to wire the lesion. Balloon angioplasty done using 2 x 15 balloon with 2 inflations each under nominal pressure for 15 seconds . Then deployed drug-eluting stent on X 2.25 by 18 under nominal pressure for 25 seconds. Postdilatation of the stent using 2.25 x 12 noncompliant balloon with 2 inflations each under 20 atmospheres for 20 seconds each time. Access site: Right common femoral artery. Hemostasis: Manual compression. CONCLUSIONS Successful stenting of high-grade stenosis mid left circumflex artery using 2.25 x 18 drug-eluting stent. PLAN Continue risk factor modification for CAD. Smoking cessation. us Kamryn Collins MD CV CARDIAC CATH PROC EDURES Final Result * eGFR (11/01/2024 7:21 AM CDT) eGFR 85 >=60 mL/min/1. 73 m2 Comment: Interpretive Data Reference Interval Normal >/= 90 mL/min/1.73m2 Mildly decreased* 60 - 89 mL/min/1.73m2 Mildly to moderately decreased 45 - 59 mL/min/1.73m2 Moderately to severely decreased 30 - 44 mL/min/1.73m2 Severely decreased 15 - 29 mL/min/1.73m2 Kidney Failure < 15 mL/min/1.73m2 *Relative to young adult level Estimated glomerular filtration rate is determined by the 2020 CKD-EPI equation recommended by the National Kidney Foundation (A Unifying Approach to GFR Estimation: Recommendations of the NKF-ASK Task Force on Reassessing the Inclusion of Race in Diagnosing Kidney Disease, JASN 2020). The CKD-EPI equation should not be used for patients with unstable renal function and has not been validated in children and those over 70. Current interpretive data was last reviewed 2021. Blood 11/01/2024 7:21 AM CDT 11/01/2024 7:24 AM CDT us Kamryn Collins MD LAB BLOOD ORDERABLES Final Result [facility] [address] [address] Department [place] [address] * (ABNORMAL) Differential, auto (11/01/2024 7:21 AM CDT) Neutrophil abs 8.16(H) 1.50 - 6.50 K/cumm Imm gran abs 0.04 0.00 - 0.10 K/cumm [facility] Lymphocyte abs 2.51 0.80 - 3.30 K/cumm [facility] Monocyte abs 0.67 0.20 - 0.80 K/cumm [facility] Eosinophil abs 0.19 0.00 - 0.50 K/cumm [facility] Basophil abs 0.03 0.00 - 0.10 K/cumm [facility] Neutrophil pct 70.4 % [facility] Comment: Interpretive Data Percent cell count reference ranges are not reported, since discordance with absolute values may lead to misinterpretation of CBC data. Current Interpretive Data was last revised on 2017. Imm gran pct 0.3 % [facility] Comment: Interpretive Data Percent cell count reference ranges are not reported, since discordance with absolute values may lead to misinterpretation of CBC data. Current Interpretive Data was last revised on 2017. Lymphocyte pct 21.6 % [facility] Comment: Interpretive Data Percent cell count reference ranges are not reported, since discordance with absolute values may lead to misinterpretation of CBC data. Current Interpretive Data was last revised on 2017. Monocyte pct 5.8 % [facility] Comment: Interpretive Data Percent cell count reference ranges are not reported, since discordance with absolute values may lead to misinterpretation of CBC data. Current Interpretive Data was last revised on 2017. Eosinophil pct 1.6 % [facility] Comment: Interpretive Data Percent cell count reference ranges are not reported, since discordance with absolute values may lead to misinterpretation of CBC data. Current Interpretive Data was last revised on 2017. Basophil pct 0.3 % [facility] Comment: Interpretive Data Percent cell count reference ranges are not reported, since discordance with absolute values may lead to misinterpretation of CBC data. Current Interpretive Data was last revised on 2017. Blood 11/01/2024 7:21 AM CDT 11/01/2024 7:24 AM CDT Kamryn Collins MD LAB BLOOD ORDERABLES Final Result [facility] [address] [address] Department [place] [address] * (ABNORMAL) CBC with auto differential (11/01/2024 7:21 AM CDT) WBC 11.60(H) 3.80 - 9.90 K/cumm Hgb 14.6 11.9 - 15.5 g/dL [facility] Hct 44.5 35.6 - 45.5 % [facility] Plt 290 150 - 400 K/cumm [facility] MPV 10.8 9.1 - 12.3 fL [facility] RBC 4.78 3.90 - 5.20 M/cumm [facility] MCV 93.1 81.3 - 96.4 fL [facility] MCH 30.5 27.1 - 33.3 pg [facility] MCHC 32.8 32.3 - 35.7 g/dL [facility] RDW CV 15.0(H) 11.1 - 14.9 % [facility] RDW SD 51.4(H) 35.7 - 48.1 fL [facility] NRBC abs 0.00 0.00 - 0.01 K/cumm [facility] Blood 11/01/2024 7:21 AM CDT 11/01/2024 7:24 AM CDT [facility]ative [facility] 11/01/2024 7:29 AM CDT If most recent labs were drawn prior to 4 AM, draw only prior to initiating procedure. Kamryn Collins MD LAB BLOOD ORDERABLES Final Result [facility] [address] [address] Department [place] [address] * Basic metabolic panel (11/01/2024 7:21 AM CDT) Sodium 141 135 - 145 mmol/L Potassium, pl 4.1 3.3 - 4.9 mmol/L [facility] Chloride 103 97 - 110 mmol/L [facility] CO2 26 22 - 32 mmol/L [facility] Anion gap 12 2 - 15 mmol/L [facility] BUN 17 6 - 25 mg/dL [facility] Creatinine 0.75 0.60 - 1.10 mg/dL [facility] Glucose 117 70 - 199 mg/dL [facility] Comment: Interpretive Data Fasting glucose >/= 126 mg/dl is diagnostic for diabetes. Fasting is defined as no caloric intake for at least 8 hours. Fasting glucose between 100 mg/dl to 125 mg/dl is diagnostic of prediabetes. In a patient with classic symptoms of hyperglycemia or hyperglycemic crisis, a random glucose >/= 200 mg/dl is diagnostic for diabetes. In the absence of unequivocal hyperglycemia, results should be confirmed by repeat testing. The classification and Diagnosis of Diabetes Diabetes Care 202; 46: S19-S40. Current interpretive data was last revised 2022. Calcium 8.9 8.5 - 10.3 mg/dL [facility] Blood 11/01/2024 7:21 AM CDT 11/01/2024 7:24 AM CDT Kamryn Collins MD LAB BLOOD ORDERABLES Final Result [facility] [address] [address] Department [place] [address] * POCT lipid panel (10/17/2024 12:07 PM CDT) Cholesterol, POC 117 mg/dL Comment:GLU = 184 HDL, POC <15 mg/dL Triglycerides, POC 120 mg/dL LDL Cholesterol POC 78 mg/dL Chol/HDL Ratio, POC N/A Non-HDL Cholesterol, POC N/A mg/dL Cholesterol Total, POC 117 mg/dL Capillary blood 10/17/2024 1 2:07 PM CDT Kamryn Collins MD POINT OF CARE TEST O RDERABLES Final Result from Last 3 Months Insurance HEALTHCARE HEALTHCARE HEALTHCARE Advance Directives For more information, please contact: [phone] * Full Code (Latest Code Status on File) Date Activated Date Inactivated Comments 11/01/2024 10:09 AM 11/02/2024 3:29 PM * Full Code Date Activated Date Inactivated Comments 01/06/2023 11:33 AM 01/06/2023 5:28 PM Care Teams Training And Quality Manager Relationship Specialty Start Date End Date WinterCarmen NP [address] [place] [address] PCP - General Nurse Practitioner 03/01/24
--- OUTSIDE RECORDS SUMMARY | 2025-01-03 07:06 | XMS_ITS | Encounter Summary ---
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
--- OUTSIDE RECORDS SUMMARY | 2025-01-03 07:06 | XMS_ITS | Referral Summary ---
Author Organization [facility] [place] Address [address] [place] [address] Care Team Providers Care Consumer Science Teacher Name Role Phone Carmen Barriga NP Primary Care Provider [phone] Encounters Date Type Department Care Team Description 12/01/2024 9:00 AM CDT Office Visit [facility] Cardiology [address] [place] [address] Lula Dewitt NP Coronary artery disease involving [place] coronary artery of [place] heart without angina pectoris (Primary Dx); Presence of stent in coronary artery; Tobacco abuse 11/10/2024 [facility] Post Discharge Follow up phone call [address] [address] Matilde Emerson 11/08/2024 [facility] Post Discharge Follow up phone call [address] [address] Matilde Emerson 11/07/2024 [facility] Post Discharge Follow up phone call [address] [address] Matilde Emerson 11/03/2024 Telephone [facility] Cardiology [address] [place] [phone] Kamryn Collins MD 11/01/2024 6:13 AM CDT - 11/02/2024 11:20 AM CDT Hospital Encounter [address] [address] Kamryn Collins MD Other chest pain; HASSAN (dyspnea on exertion) Discharge Disposition: Discharge to home or self care 11/01/2024 8:30 AM CDT - 11/01/2024 10:00 AM CDT Surgery [facility] Cardiac Catheterization Lab [address] [place] [address] Kamryn Collins MD LEFT HEART CATHETERIZATION WITH CORONARY ANGIOGRAPHY AND WITH OR WITHOUT LEFT VENTRICULOGRAM [id number] 10/17/2024 Telephone [facility] Cardiology [address] [place] [address] Kamryn Collins MD 10/17/2024 8:00 AM CDT Office Visit [facility] Cardiology [address] [place] [address] Kamryn Collins MD HASSAN (dyspnea on exertion) (Primary Dx); Edema, unspecified type; Infrarenal abdominal aortic aneurysm (AAA) without rupture; Other chest pain; Abnormal stress test; Tobacco abuse; Palpitations; Need for lipid screening from Last 3 Months Allergies No known active allergies Medications aspirin [...] on file Legal Sex Female 12:42 AM 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 Device Closure Vascade Od5 Fr Femoral Artery [id number] - [id number] Implanted:Qty: 1 on 01/06/2023 by Kamryn Collins MD at [facility] 08/11/2024 [id number] / / [id number] Vasc Surgery 2.25 X 18mm Renny [place] [employer] Coronary Stent [id number] - [id number] Implanted:Qty: 1 on 11/01/2024 by [facility] Vasc Surgery 11/24/2026 [id number] / / [id number] Procedures Procedure Name Priority Date/Time Associated [...] exertion) MODERATE SEDATION FIRST 15MIN 5+ YEAR [address] 11/01/2024 8:18 AM CDT Other chest pain HASSAN (dyspnea on exertion) MODERATE SEDATION SAME MD SUKHDEV GODOY 15 MIN [address] 11/01/2024 8:18 AM CDT Other chest pain [...] MD LAB BLOOD ORDERABLES Final Result [facility] [address] [place] [address] * Differential, auto (11/02/2024 5:15 AM CDT) Neutrophil abs 6.48 1.50 - 6.50 K/cumm Imm gran abs 0.03 0.00 - 0.10 K/cumm [facility] Lymphocyte abs 1.89 0.80 - 3.30 K/cumm [facility] Monocyte abs 0.78 0.20 - 0.80 K/cumm [facility] Eosinophil abs 0.20 0.00 - 0.50 K/cumm [facility] Basophil abs 0.03 0.00 - 0.10 K/cumm [facility] Neutrophil pct 68.9 % [facility] Comment: Interpretive Data Percent cell count reference ranges are not reported, since discordance with absolute values may lead to misinterpretation of CBC data. Current Interpretive Data was last revised on 2017. Imm gran pct 0.3 % [facility] Comment: Interpretive Data Percent cell count reference ranges are not reported, since discordance with absolute values may lead to misinterpretation of CBC data. Current Interpretive Data was last revised on 2017. Lymphocyte pct 20.1 % [facility] Comment: Interpretive Data Percent cell count reference ranges are not reported, since discordance with absolute values may lead to misinterpretation of CBC data. Current Interpretive Data was last revised on 2017. Monocyte pct 8.3 % [facility] Comment: Interpretive Data Percent cell count reference ranges are not reported, since discordance with absolute values may lead to misinterpretation of CBC data. Current Interpretive Data was last revised on 2017. Eosinophil pct 2.1 % [facility] Comment: Interpretive Data Percent cell count reference ranges are not reported, since discordance with absolute values may lead to misinterpretation of CBC data. Current Interpretive Data was last revised on 2017. Basophil pct 0.3 % [facility] Comment: Interpretive Data Percent cell count reference ranges are not reported, since discordance with absolute values may lead to misinterpretation of CBC data. Current Interpretive Data was last revised on 2017. Blood 11/02/2024 5:15 AM CDT 11/02/2024 6:07 AM CDT Kamryn Collins MD LAB BLOOD ORDERABLES Final Result [facility] [address] [place] [address] * (ABNORMAL) CBC with auto differential (11/02/2024 5:15 AM CDT) Pathologist [facility] WBC 9.41 3.80 - 9.90 K/cumm Hgb 14.3 11.9 - 15.5 g/dL [facility] Hct 44.4 35.6 - 45.5 % [facility] Plt 258 150 - 400 K/cumm [facility] MPV 10.8 9.1 - 12.3 fL [facility] RBC 4.79 3.90 - 5.20 M/cumm [facility] MCV 92.7 81.3 - 96.4 fL [facility] MCH 29.9 27.1 - 33.3 pg [facility] MCHC 32.2(L) 32.3 - 35.7 g/dL [facility] RDW CV 14.9 11.1 - 14.9 % [facility] RDW SD 51.4(H) 35.7 - 48.1 fL [facility] NRBC abs 0.00 0.00 - 0.01 K/cumm [facility] Blood 11/02/2024 5:15 AM CDT 11/02/2024 6:07 AM CDT Kamryn Collins MD LAB BLOOD ORDERABLES Final Result [facility] [address] [address] * (ABNORMAL) Basic metabolic panel (11/02/2024 5:15 AM CDT) Sodium 135 135 - 145 mmol/L Potassium, pl 4.3 3.3 - 4.9 mmol/L [facility] Chloride 98 97 - 110 mmol/L [facility] CO2 21(L) 22 - 32 mmol/L [facility] Anion gap 16(H) 2 - 15 mmol/L [facility] BUN 9 6 - 25 mg/dL [facility] Creatinine 0.68 0.60 - 1.10 mg/dL [facility] Glucose 96 70 - 199 mg/dL [facility] Comment: Interpretive Data Fasting glucose >/= [...] Calcium 8.9 8.5 - 10.3 mg/dL [facility] Blood 11/02/2024 5:15 AM CDT 11/02/2024 6:07 AM CDT us Kamryn Collins MD LAB BLOOD ORDERABLES Final Result [facility] [address] [place] [address] * ECG 12 lead (11/01/2024 10:55 AM CDT) 11/01/2024 10:5 5 AM CDT Narrative [facility] - 11/01/2024 12:30 PM CDT Vent Rate: 90 bpm RR Interval: 660 msec MN Interval: 125 msec QRS Duration: 89 msec QT Interval: 360 msec QTC Interval: 408 msec P-R-T Duff: 70 - 62 - 50 degrees IMPRESSION: SINUS RHYTHM NORMAL ECG Electronically Signed By: Denis Gregorio MD us Kamryn Collins MD ECG ORDERABLES Skylar adler Result [facility] * LEFT HEART CATHETERIZATION WITH CORONARY ANGIOGRAPHY AND WITH AND WITHOUT LEFT VENTRICULOGRAM, KAYCE MAJOR CORONARY (11/01/2024 9:38 AM CDT) Anatomical Region Laterality Modality X-Ray Angiograph y Narrative 11/01/2024 1:30 PM CDT CARDIAC CATHETERIZATION REPORT [facility] [place] IP ENCOUNTER: @CSN@ Date of Procedure: 11/01/2024 BIRTHDATE: 1955 INVESTIGATOR INTERNAL AFFAIRS: Kamryn Collins MD PREPROCEDURE DIAGNOSES: This 69-year-old [...] informed consent patient was brought into the catheter finisher and inspector where she was draped and prepped in the usual manner. Moderate sedation was given and the right groin infiltrated using 1% lidocaine. Five Bruneian sheath was obtained using micropuncture needle and modified Seldinger technique. Selective left coronary angiogram was done using JL4 catheter with the tip of the catheter placed in the left main coronary artery. Selective right coronary angiogram was done using JR4 catheter with the tip of the catheter placed in the right coronary artery. After that 5 Bruneian pigtail catheter was advanced across aortic valve into the left ventricular with measurement of LVEDP and measure gradient across aortic valve. Right common femoral arterial angiogram was done . INTERVENTION -Left main coronary artery was engaged using 6 Bruneian EBU 3.5 guide catheter. After that we [...] MD LAB BLOOD ORDERABLES Final Result [facility] [address] [place] [address] * (ABNORMAL) Differential, auto (11/01/2024 7:21 AM CDT) Neutrophil abs 8.16(H) 1.50 - 6.50 K/cumm Imm gran abs 0.04 0.00 - 0.10 K/cumm [facility] Lymphocyte abs 2.51 0.80 - 3.30 K/cumm [facility] Monocyte abs 0.67 0.20 - 0.80 K/cumm [facility] Eosinophil abs 0.19 0.00 - 0.50 K/cumm [facility] Basophil abs 0.03 0.00 - 0.10 K/cumm [facility] Neutrophil pct 70.4 % [facility] Comment: Interpretive Data Percent cell count reference ranges are not reported, since discordance with absolute values may lead to misinterpretation of CBC data. Current Interpretive Data was last revised on 2017. Imm gran pct 0.3 % [facility] Comment: Interpretive Data Percent cell count reference ranges are not reported, since discordance with absolute values may lead to misinterpretation of CBC data. Current Interpretive Data was last revised on 2017. Lymphocyte pct 21.6 % [facility] Comment: Interpretive Data Percent cell count reference ranges are not reported, since discordance with absolute values may lead to misinterpretation of CBC data. Current Interpretive Data was last revised on 2017. Monocyte pct 5.8 % [facility] Comment: Interpretive Data Percent cell count reference ranges are not reported, since discordance with absolute values may lead to misinterpretation of CBC data. Current Interpretive Data was last revised on 2017. Eosinophil pct 1.6 % [facility] Comment: Interpretive Data Percent cell count reference ranges are not reported, since discordance with absolute values may lead to misinterpretation of CBC data. Current Interpretive Data was last revised on 2017. Basophil pct 0.3 % [facility] Comment: Interpretive Data Percent cell count reference ranges are not reported, since discordance with absolute values may lead to misinterpretation of CBC data. Current Interpretive Data was last revised on 2017. Blood 11/01/2024 7:21 AM CDT 11/01/2024 7:24 AM CDT us Kamryn Collins MD LAB BLOOD ORDERABLES Final Result [facility] [address] [place] [address] * (ABNORMAL) CBC with auto differential (11/01/2024 7:21 AM CDT) WBC 11.60(H) 3.80 - 9.90 K/cumm Hgb 14.6 11.9 - 15.5 g/dL [facility] Hct 44.5 35.6 - 45.5 % [facility] Plt 290 150 - 400 K/cumm [facility] MPV 10.8 9.1 - 12.3 fL [facility] RBC 4.78 3.90 - 5.20 M/cumm [facility] MCV 93.1 81.3 - 96.4 fL [facility] MCH 30.5 27.1 - 33.3 pg [facility] MCHC 32.8 32.3 - 35.7 g/dL [facility] RDW CV 15.0(H) 11.1 - 14.9 % [facility] RDW SD 51.4(H) 35.7 - 48.1 fL [facility] NRBC abs 0.00 0.00 - 0.01 K/cumm [facility] Blood 11/01/2024 7:21 AM CDT 11/01/2024 7:24 AM CDT Narrative [facility] - 11/01/2024 7:29 AM CDT If most recent labs were drawn prior to 4 AM, draw only prior to initiating procedure. Kamryn Collins MD LAB BLOOD ORDERABLES Final [facility] [address] [place] [address] * Basic metabolic panel (11/01/2024 7:21 AM CDT) [facility] Sodium 141 135 - 145 mmol/L Potassium, pl 4.1 3.3 - 4.9 mmol/L [facility] Chloride 103 97 - 110 mmol/L [facility] CO2 26 22 - 32 mmol/L [facility] Anion gap 12 2 - 15 mmol/L [facility] BUN 17 6 - 25 mg/dL [facility] Creatinine 0.75 0.60 - 1.10 mg/dL [facility] Glucose 117 70 - 199 mg/dL [facility] Comment: Interpretive Data Fasting glucose >/= [...] Calcium 8.9 8.5 - 10.3 mg/dL [facility] Blood 11/01/2024 7:21 AM CDT 11/01/2024 7:24 AM CDT Kamryn Collins MD LAB BLOOD ORDERABLES Final Result [facility] [address] [place] [address] * POCT lipid panel (10/17/2024 12:07 PM CDT) Cholesterol, POC 117 mg/dL Comment:GLU = 184 HDL, POC <15 mg/dL Triglycerides, POC 120 mg/dL LDL Cholesterol POC 78 mg/dL Chol/HDL Ratio, POC N/A Non-HDL Cholesterol, POC N/A mg/dL Cholesterol Total, POC 117 mg/dL Capillary blood 10/17/2024 1 2:07 PM CDT us Kamryn Collins MD POINT OF CARE TEST O RDERABLES Final Result from Last 3 Months Insurance [employer] Advance Directives For more information, please contact: [phone] * Full Code (Latest Code Status on File) Date Activated Date Inactivated Comments 11/01/2024 10:09 AM 11/02/2024 3:29 PM * Full Code Date Activated Date Inactivated Comments 01/06/2023 11:33 AM 01/06/2023 5:28 PM Care Teams Consumer Science Teacher Relationship Specialty Start Date End Date Carmen Barriga NP [address] [facility] [address] [facility] [place] [address] PCP - General Nurse Practitioner 03/01/24
[2025-01-03 10:17] LABS: Vitamin D 25 Hydroxy 37.3 ng/mL
[2025-01-05 14:24] LABS: Basophils Absolute Auto 0.1 K/mm3 (0.0-0.1); Basophils Percent Auto 0.9 % (0.2-1.2); Eosinophils Absolute Auto 0.3 K/mm3 (0-0.3); Eosinophils Percent Auto 4.5 % (0-4.4); Hematocrit 47.5 % (37.0-47.0); Hemoglobin 14.6 g/dL (12.0-15.0); Immature Granulocyte Absolute 0.03 K/mm3 (0.00-0.031); Immature Granulocyte Percent A 0.5 % (0-0.5); Lymphocytes Absolute Auto 2.12 K/mm3 (0.9-3.2); Lymphocytes Percent Auto 31.8 % (18.3-44.2); Mean Corpuscular HGB Conc 30.7 g/dl (32-36); Mean Corpuscular Hemoglobin 29.7 pg (26-34); Mean Corpuscular Volume 96.7 fl (80-100); Mean Platelet Volume 11.7 fl (7.4-10.4); Monocytes Absolute Auto 0.4 K/mm3 (0.1-0.6); Monocytes Percent Auto 5.3 % (2.6-8.5); Neutrophils Absolute Auto 3.8 K/mm3 (1.3-6.7); Platelet Count Result 269 k/mm3 (150-375); Red Blood Count 4.91 M/mm3 (4.2-5.4); Red Cell Distribution Width 15.2 % (11.5-14.5); White Blood Count 6.7 K/mm3 (4.5-10.0)
[2025-01-05 14:58] LABS: Iron 88 ug/dL (37-170)
[2025-01-05 15:08] LABS: Percent Iron Saturation 25 % (20-50)
[2025-01-05 18:46] LABS: Alanine Aminotransferase 17 U/L (6-35); Albumin Level 4.8 g/dL (3.5-5.1); Alkaline Phosphatase 82 U/L (38-126); Anion Gap 11 mmol/L (4-12); Aspartate Amino Transferase 26 U/L (14-36); Bilirubin,Total 0.2 mg/dL (0.2-1.3); Blood Urea Nitrogen 20 mg/dL (7-17); Calcium 10.7 mg/dL (8.4-10.2); Carbon Dioxide 21 mmol/L (22-30); Chloride 120 mmol/L (98-107); Cholesterol 229 mg/dL (0-200); Estimated Glomerular Filt Rate 57; Glucose 108 mg/dL (65-110); HDL Direct 102 mg/dL; Hemoglobin A1C 5.7 % (<5.7); Potassium 5.5 mmol/L (3.4-5.0); Sodium 152 mmol/L (137-145); Total Protein 7.7 g/dL (6.3-8.2); Triglycerides 138 mg/dL (<150)
[2025-01-05 18:57] LABS: LDL Cholesterol Direct 95 mg/dL
== END 2025-01-03 07:01 | disposition home or self-care (01) ==
PROVIDERS: PCP Family Medicine; Visit Provider Nurse Practitioner Family
DX: R73.03 Prediabetes (principal); F41.9 Anxiety disorder, unspecified; I71.02 Dissection of abdominal aorta; E78.5 Hyperlipidemia, unspecified; K21.9 Gastro-esophageal reflux disease without esophagitis; R10.32 Left lower quadrant pain; J44.9 Chronic obstructive pulmonary disease, unspecified; I25.10 Atherosclerotic heart disease of native coronary artery without angina pectoris; I70.219 Atherosclerosis of native arteries of extremities with intermittent claudication, unspecified extremity
CPT/HCPCS: 36415; 80053; 80061; 82306; 83036; 83540; 83550; 84439; 85025

== ENCOUNTER 2025-01-06 12:24 | Outpatient (CLI) | payer OTHER, SELFPAY ==
--- NOTE | ~2025-01-06 | CT_ITS ---
CT abdomen pelvis w con Ordering provider: Carmen Barriga APRN History: 69 years Female with . R10.32 - Left lower quadrant pain . Comparison: None. Technique: CT abdomen and pelvis with IV and without oral contrast. Automated exposure control and it erative reconstruction technique were employed. The dose-length product was 176.09 mGy-cm. 90 mL Omni paque 350 was given IV. Findings: VISUALIZED LOWER CHEST: Minimal pericardial effusion. Other appearances are unremarkable. UPPER ABDOMINAL ORGANS: Liver: Normal. Dilated CBD measuring 7 mm. Gallbladder: Status post cholecystectomy. Spleen: Normal. Stomach/duodenum: Normal. Pancreas: Dilated pancreatic duct. Follow-up advised. Adrenals: Normal. Kidneys: The left kidney is absent. Minimal fullness of the right renal pelvis. PELVIC ORGANS: The bladder is underfilled. BOWEL AND MESENTERY: Colon: Postoperative changes in the sigmoid colon. No evidence of diverticulitis. The appendix is not demonstrated. Small Bowel: Slightly dilated jejunal loops is noted. No obstruction. Peritoneum/mesentery: No free air or free fluid. No mesenteric lymphadenopathy. RETROPERITONEUM: Mild dilatation of the distal aorta measuring 3.1 cm. Mild atheromatous disease of t he abdominal aorta. No retroperitoneal lymphadenopathy. MUSCULOSKELETAL: Superficial soft tissues: The superficial soft tissues are normal. Bones: Age appropriate degenerative changes of the spine. Right hip severe osteoarthritic changes. Mi ld dextroscoliosis. IMPRESSION: 1. No evidence of appendicitis, diverticulitis or intestinal obstruction. 2. Aneurysmal dilatation in the distal aorta measuring 3.1 cm. 3. Absent left kidney. 4. Minimal fullness of the renal pelvis on the right kidney with no definite stones 5. Slightly prominent pancreatic duct and dilated CBD. Follow-up advised. 6. Minimal pericardial effusion. Reviewed, dictated and finalized at location A. IMPRESSION: 1. No evidence of appendicitis, diverticulitis or intestinal obstruction. 2. Aneurysmal dilatation in the distal aorta measuring 3.1 cm. 3. Absent left kidney. 4. Minimal fullness of the renal pelvis on the right kidney with no definite s tones 5. Slightly prominent pancreatic duct and dilated CBD. Follow-up advised. 6. Minimal pericardial effusion.
== END 2025-01-06 12:25 | disposition home or self-care (01) ==
PROVIDERS: PCP Nurse Practitioner Family; Visit Provider Nurse Practitioner Family
DX: R10.32 Left lower quadrant pain (principal); Z98.890 Other specified postprocedural states; R19.8 Other specified symptoms and signs involving the digestive system and abdomen; R93.5 Abnormal findings on diagnostic imaging of other abdominal regions, including retroperitoneum; Z90.5 Acquired absence of kidney; I31.39 Other pericardial effusion (noninflammatory)
CPT/HCPCS: 74177; Q9967